=== PATIENT | female | born 1960 | race Caucasian/White ===

== ENCOUNTER → 2024-10-05 13:48 | Outpatient (REF) | payer MEDICARE, OTHER, SELFPAY | LOC: RAD 13:48 | PROVIDERS: ATTENDING PHYSICIAN Family Medicine | DX: R06.09 Other forms of dyspnea (principal) | CPT/HCPCS: 71046 ==

== ENCOUNTER → 2024-10-05 15:22 | Outpatient (REF) | payer MEDICARE, OTHER, SELFPAY | LOC: WDC 15:22 | PROVIDERS: ATTENDING PHYSICIAN Family Medicine | DX: Z12.31 Encounter for screening mammogram for malignant neoplasm of breast (principal) | CPT/HCPCS: 77063; 77067 ==

== ENCOUNTER → 2024-10-15 06:55 | Outpatient (REF) | payer MEDICARE, OTHER, SELFPAY | LOC: RSP 06:55 | PROVIDERS: ATTENDING PHYSICIAN Family Medicine | DX: R06.09 Other forms of dyspnea (principal) | CPT/HCPCS: 94727; 94729; 88738; 94060 ==

== ENCOUNTER → 2024-10-28 12:39 | Outpatient (REF) | payer MEDICARE, OTHER, SELFPAY | LOC: RCS 12:39 | PROVIDERS: ATTENDING PHYSICIAN Internal Medicine Cardiovascular Disease; FAMILY PHYSICIAN Family Medicine | DX: I25.10 Atherosclerotic heart disease of native coronary artery without angina pectoris (principal) | CPT/HCPCS: 93306 ==

== ENCOUNTER → 2024-11-02 09:13 | Outpatient (REF) | payer MEDICARE, OTHER, SELFPAY | LOC: HWRAD 09:13 | PROVIDERS: ATTENDING PHYSICIAN Family Medicine | DX: R06.09 Other forms of dyspnea (principal); J98.4 Other disorders of lung | CPT/HCPCS: 71250 ==

== ENCOUNTER 2024-11-30 07:23 | Emergency (ER) | payer MEDICARE, OTHER, SELFPAY ==
[2024-11-30 07:26] VITALS: BP 164/108
--- NOTE | 2024-11-30 08:00 | ED.GENMED ---
History of Present Illness
General
Chief Complaint: Skin Surface Trauma
Time Seen by Provider: 11/30/24 08:00
History of Present Illness
History of Present Illness:
TIME OF INITIAL ENCOUNTER: 8 AM
HPI: Patient presents with a forehead laceration. She tripped over boxes (moving). She has no significant headache. She has no neck discomfort. She has no extremity pain or pain in the chest or abdomen. She is concerned because she is flying to
[place] tomorrow.
EXAM:
GENERAL: Well appearing in no distress
CERVICAL SPINE: No midline c-spine tenderness with excellent AROM
HEAD: There is a curvilinear laceration measuring approximately 2.5 cm in the left side of the forehead
CHEST: No chest wall tenderness, normal heart sounds
LUNGS: Equal lung sounds, no respiratory distress
ABDOMEN: No abdominal tenderness, no peritoneal signs
EXTREMITIES: Normal active range of motion, no tenderness
NEURO: Excellent strength all extremities, appropriate mental status, normal speech/language
NUMBER AND COMPLEXITY OF PROBLEMS ADDRESSED AT THE ENCOUNTER
� Chronic conditions affecting care: High blood pressure, hyperlipidemia
� Acute Exacerbation and/or Progression of Chronic Illness: This is an acute problem
� Differential Diagnosis includes: Minor head injury, laceration, concussion not present based on physical examination and history, intracranial hemorrhage very unlikely
AMOUNT AND/OR COMPLEXITY OF DATA TO BE REVIEWED AND ANALYZED
� I performed an independent evaluation of and my interpretation is:
EKG:
CT: CT imaging of the brain shows no acute abnormality
X-rays:
Laboratory Studies:
Other:
� Review of other/old records: I reviewed records, the patient had colonoscopy 2020
� Clinical information was obtained by an independent historian: None needed
� Prescriptions/Medications Considered but not given:
� Further testing considered but not performed:
RISK OF COMPLICATIONS AND/OR MORBIDITY OR MORTALITY OF PATIENT MANAGEMENT
� Social determinants of health affecting care: Lives at home, is flying to [place] tomorrow
� Discussion with other providers:
� Escalation of care including admission/observation vs risk of discharge considered: Although I have very low suspicion for intracranial hemorrhage, will obtain CT of the brain as the patient is flying out of the country
tomorrow and cannot be closely monitored at home.
ANY OTHER UPDATES:
CT head negative. Patient remains well-appearing at time of discharge. Laceration cleaned and repaired.
Phy Exam
Physical Exam
Physical Exam:
See HPI
Course
Orders/Labs/Results
Orders:
Orders
11/30/24 08:08
CT Head W/o Iv Contrast Urgent
Comment:
Reason For Exam: head injury
Vital Signs
Initial and Last Documented VS:
Initial Vital Signs
Temp Pulse Resp BP Pulse Ox
36.6 C 69 16 164/108 99
11/30/24 07:26 11/30/24 07:26 11/30/24 07:26 11/30/24 07:26 11/30/24 07:26
Last Documented Vital Signs
Temp Pulse Resp BP Pulse Ox
36.6 C 69 16 164/108 99
11/30/24 07:26 11/30/24 07:26 11/30/24 07:26 11/30/24 07:26 11/30/24 07:26
Procedures
Laceration Closure
Left Upper Forehead:
Status of Wound: clean
Description of Wound Edges: sharp
Preparation: cleaned with saline and other (chlorhexidine)
Anesthesia: 1% Lidocaine with epi
Revision/Debridement: routine- no revision
Wound exploration: explored to base- no FB
Type of Closure: single layer closure
Skin Closure Material: 6-0 nylon
Number of sutures: 2
*Critical Care Note
Total Time (30-74mins, 75-104mins- exclusive of procedures): Not Applicable
ED Attending Note
-
Portions of this chart may have been created with voice recognition software.� Occasional wrong word or��sound alike� substitutions may have occurred due to the inherent limitations of voice recognition software.
Discharge Plan
Departure
Patient Disposition: Home (Routine Discharge)
Date of Disposition: 11/30/24
Time of Disposition: 09:12
Patient with high blood pressure during this ER visit?: Yes
Discharge Problem:
Facial laceration
Instructions: Laceration Repair With Stitches (DC), BLOOD PRESSURE
Referrals:
Sarai Rutledge DO [Family Provider, Family Practice]
Activity Restrictions/Additional Instructions:
The CAT scan of the brain shows no bleeding. I recommend that your sutures removed in 5 to 7 days. Return here if worse or other concerns.
Interventions
Interventions:
*Risk Screen - Suicide Last Done: 11/30/24 07:30
*Neglect/Abuse Screening Last Done: 11/30/24 07:30
Discharge Date and Time
Print Language: ARABIC
== END 2024-11-30 09:13 | disposition home or self-care (01) ==
LOC: EMR 07:23
PROVIDERS: EMERGENCY PHYSICIAN Emergency Medicine; FAMILY PHYSICIAN Family Medicine
DX: S01.81XA Laceration without foreign body of other part of head, initial encounter (principal); W18.09XA Striking against other object with subsequent fall, initial encounter; R03.0 Elevated blood-pressure reading, without diagnosis of hypertension
CPT/HCPCS: 99284; 12011; 70450